=== PATIENT | female | born 1945 | race Caucasian/White ===

== ENCOUNTER 2024-03-21 15:00 | Emergency (ER) | payer OTHER ==
[~2024-03-21] VITALS: Ht 162.6 cm; Wt 65.0 kg
[~2024-03-21 15:00] MED LIST: ADVIL
[2024-03-21 15:07] VITALS: O2SAT 97
[2024-03-21] MEDS: ACETAMINOPHEN 325MG TABLET PO ONE (15:45)
[2024-03-21] MEDS ORDERED: IBUP-2028 MT (18:09)
[2024-03-21 18:58] VITALS: BP 129/89; PULSE 84; RESP 16; TEMP 98.6
== END 2024-03-21 19:04 | disposition home or self-care (01) ==
LOC: ER 15:00
DX: S22.32XA Fracture of one rib, left side, initial encounter for closed fracture (principal); I10 Essential (primary) hypertension; W18.39XA Other fall on same level, initial encounter; Y93.89 Activity, other specified; Y92.89 Other specified places as the place of occurrence of the external cause; Y99.8 Other external cause status
CPT/HCPCS: 71101; 99283